=== PATIENT | female | born 1980 | race African-American/Black ===

== ENCOUNTER 2016-08-13 20:05 | Emergency (ER) | payer MEDICAID, OTHER ==
[~2016-08-13] VITALS: Ht 172.7 cm; Wt 64.9 kg
[~2016-08-13 20:05] MED LIST: BACTRIM-DS1 EA ORAL; CYCLOBENZAPRINE10 MG ORAL; IBUPROFEN600 MG ORAL; IBUPROFEN800 MG ORAL; KEFLEX500 MG ORAL; NORCO 5-325 TA1 EACH ORAL
[2016-08-13 20:34] VITALS: BP 130/87
[2016-08-13] MEDS ORDERED: PredniSONE 20mg tab ORAL ONE (20:45)
[2016-08-13] MEDS ORDERED: PREDNISONE20 MG ORAL (20:47)
[2016-08-13] MEDS ORDERED: BENADRYL25 MG ORAL (20:47)
[2016-08-13 20:54] VITALS: BP 130/87
--- NOTE | 2016-08-13 20:55 | Emergency Room Report ---
History of Present Illness General Chief Complaint: Skin Rash/Abscess Source: Patient Present Illness HPI 35YOF walk-in with bug bites, swelling, "welts" and itch since last night. Was outside all day yesterday. Legs were exposed. Denies fever/chills, tongue/lips swelling, SOB, blisters. Didnt take any OTC meds at home. Allergies: Coded Allergies: No Known Allergies (Unverified , 04/30/14) Patient History Past Medical History: none Past Surgical History: none Pertinent Family History: none Social History: Denies: alcohol use, drug use, smoking Last Menstrual Period: 2 weeks ago Now: No Immunizations: UTD Reviewed Nursing Documentation: PMH: Agreed, PSxH: Agreed Nursing Documentation-PMH Hx Hypertension: Yes Review of Systems All Other Systems: negative except mentioned in HPI Physical Exam Vital Signs Date Time Temp Pulse Resp B/P Pulse Ox O2 Delivery O2 Flow Rate FiO2 08/13/16 20:09 98.2 78 16 130/87 97 Room Air Sp02 EP Interpretation: reviewed, normal General Appearance: normal inspection, well appearing, no apparent distress, alert, GCS 15, non-toxic Head: normocephalic, atraumatic Eyes: bilateral eye EOMI, bilateral eye PERRL ENT: normal ENT inspection, hearing grossly normal, normal voice Neck: normal inspection, full range of motion, supple, no bony tend Respiratory: normal inspection, lungs clear, normal breath sounds, no respiratory distress, no retraction, no wheezing Cardiovascular #1: regular rate, rhythm, no edema Gastrointestinal: normal inspection, normal bowel sounds, non tender, soft, no guarding, no hernia Genitourinary: no CVA tenderness Musculoskeletal: normal inspection, back normal, normal range of motion, Gavino' s Sign negative Neurologic: normal inspection, alert, oriented x3, responsive, accountant systems III-XII nml as tested, motor strength/tone normal, speech normal Psychiatric: normal inspection, judgement/insight normal, mood/affect normal Skin: normal inspection, normal color, other - Multiple areas of welts, red and swelling to anterior shins, bilterally Lymphatic: normal inspection Medical Decision Making Diagnostic Impression: Primary Impression: Allergic reaction Qualified Codes: T78.40XA - Allergy, unspecified, initial encounter ER Course Likely insect bite related allergic reaction Localized VSS. Afebrile No airway involvement Rx Bendadryl, prednisone DC home Last Vital Signs Date Time Temp Pulse Resp B/P Pulse Ox O2 Delivery O2 Flow Rate FiO2 08/13/16 20:34 98.2 16 130/87 97 Room Air 08/13/16 20:09 78 Status: improved Disposition: HOME, SELF-CARE Condition: Improved Scripts Prednisone* (PREDNISONE*) 20 Mg Tablet 40 MG ORAL DAILY for 3 Days, #3 TAB Prov: CLAU HAYDEN M.D. 08/13/16 Diphenhydramine Hcl* (BENADRYL*) 25 Mg Capsule 25 MG ORAL TID Y for Itching for 5 Days, #20 CAP Prov: CLAU HAYDEN M.D. 08/13/16 Patient Instructions: Pruritus Additional Instructions: - Take benadryl IF YOU NEED it for rash, itch - Take prednisone each morning for next 3 days CLAU HAYDEN M.D. Aug 13, 2016 20:55
== END 2016-08-13 21:00 | disposition home or self-care (01) ==
LOC: EMR 21:00
DX: T78.40XA Allergy, unspecified, initial encounter (principal); X58.XXXA Exposure to other specified factors, initial encounter; R21 Rash and other nonspecific skin eruption; I10 Essential (primary) hypertension
CPT/HCPCS: 99284